=== PATIENT | male | born 2000 | race Caucasian/White ===

== ENCOUNTER 2020-09-15 18:14 | Emergency (ER) | payer BC, SELFPAY ==
[2020-09-15 18:20] VITALS: BP 127/77; PULSE 76; RESP 18; TEMP 36.7; O2SAT 98
--- NOTE | 2020-09-15 18:25 | ED.GENADULT ---
HPI - General Adult General Chief complaint: Neck Pain/Injury Stated complaint: lump Time Seen by Provider: 09/15/20 18:25 Source: patient and RN notes reviewed History of Present Illness HPI narrative: Patient is a 20-year-old male who presents the urgent care with complaints of a lump to the right neck. Patient states he originally did a Zoom call with his physician who told him to go to the emergency room. Patient states that he went to the ER 12 days ago and was placed on Keflex. Patient states that he did complete the prescription in the lump seems to have gotten larger since then. Patient states that the ER did not do blood work or test him for mono, strep or complete an ultrasound of the area. Patient denies of any fatigue, fever, nausea, vomiting, headaches. Patient denies of any history of autoimmune disorder. No other acute complaints. No acute distress noted. Patient aware of the plan of care. Some parts of this dictation were generated by voice recognition software and may contain typographical and/or grammatical inaccuracies. Related Data Allergies Allergy/AdvReac Type Severity Reaction Status Date / Time No Known Allergies Allergy Verified 09/15/20 18:19 Review of Systems Review of Systems: Narrative: CONSTITUTIONAL: Denies fever, chills, or sweats. EYES: Denies visual changes, redness, or discharge. ENT: Denies rhinorrhea, congestion, sore throat, or otalgia. Ports of a swollen lymph node in the neck CARDIOVASCULAR: Denies chest pain, palpitations, or edema. RESPIRATORY: Denies cough or dyspnea. GASTROINTESTINAL: Denies abdominal pain, nausea, vomiting, or diarrhea. GENITOURINARY: Denies dysuria or hematuria. SKIN: Denies rash or itching. MUSCULOSKELETAL: Denies back pain, joint pain, or myalgia. NEUROLOGIC: Denies headache, numbness, or weakness. All other systems reviewed are negative, except as documented in HPI. PMFSH Comments At the time of my signature, I reviewed and agree with the nursing past medical, surgical, social, and family history. There is no relevant family history pertinent to the patient complaint. Exam Narrative: Exam Narrative: GENERAL: This is a well-nourished, well-developed patient, in no apparent distress. HEAD: normocephalic, atraumatic. EYES: PERRL. Sclera clear/white. Vision is grossly intact. EARS: External ears normal, auditory canals clear and without drainage, TMs normal without perforation. Hearing grossly intact. NOSE: External nose normal with no obvious nasal discharge, nares without redness, no rhinorrhea. THROAT: Mucous membranes moist, mild erythema noted to posterior oropharynx with mild right tonsillar edema. NECK: Neck supple, non-tender right moderate (approximately 3-4cm firm, movable) cervical lymphadenopathy CARDIOVASCULAR: Regular rate and rhythm without murmurs, gallops, or rubs. RESPIRATORY: Clear to auscultation. Breath sounds equal bilaterally. No wheezes, rales, or rhonchi. SKIN: warm, intact with no suspicious lesions or rash, good texture and turgor. NEURO: awake, alert, and oriented to person, place and time. There were no obvious focal neurologic abnormalities. EXTREMITIES: No clubbing, cyanosis, or edema. Course Vital Signs Vital signs: Vital Signs Temperature 98.1 F 09/15/20 18:20 Pulse Rate 76 09/15/20 18:20 Respiratory Rate 18 09/15/20 18:20 Blood Pressure 127/77 09/15/20 18:20 Pulse Oximetry 98 09/15/20 18:20 Temperature 98.1 F 09/15/20 18:32 Pulse Rate 76 09/15/20 18:32 Respiratory Rate 18 09/15/20 18:32 Blood Pressure 127/77 09/15/20 18:32 Pulse Oximetry 98 09/15/20 18:32 Reviewed Medical Decision Making MDM Narrative Medical decision making narrative: Reviewed lab results with the patient. He is aware that mono spot was negative. The mono is not the most accurate test and therefore if symptoms persist may need to repeat with labs. However, you are positive for strep which could be causing the swolle
[2020-09-15 18:32] VITALS: BP 127/77; PULSE 76; RESP 18; TEMP 36.7; O2SAT 98
== END 2020-09-15 18:50 | disposition home or self-care (01) ==
PROVIDERS: Emergency Provider Nurse Practitioner Family; PCP Family Medicine
DX: J02.0 Streptococcal pharyngitis (principal)
CPT/HCPCS: 36416; 86308; 87880; 99203; G0463

== ENCOUNTER 2020-10-18 15:09 | Emergency (ER) | payer BC, SELFPAY ==
[2020-10-18 15:14] VITALS: BP 155/65; PULSE 76; RESP 20; TEMP 36.3; O2SAT 100
--- NOTE | 2020-10-18 15:18 | ED.EAR ---
HPI - Ear Problem General Chief complaint: Upper Respiratory Infection Stated complaint: Clogged Ear, Congestion Time Seen by Provider: 10/18/20 15:18 Source: patient and RN notes reviewed History of Present Illness HPI Narrative: Patient is a 20-year-old male who presents the urgent care with complaints of a right clogged ear and congestion. Patient states is been ongoing for approximately 3 months. Since then patient was treated for strep due to a lump in his throat and a positive strep swab. Patient states that it never improved the congestion or ear pain. Patient denies of any fevers, nausea, vomiting. Currently denies of a sore throat. Patient states his doctor told him to take Sudafed and follow-up in our facility if it continued longer than 7 days. Patient states he has been on the Sudafed for 7 days and it seems to have gotten worse. No other acute complaints. No acute distress noted. Patient aware of the plan of care. Some parts of this dictation were generated by voice recognition software and may contain typographical and/or grammatical inaccuracies. Related Data Allergies Allergy/AdvReac Type Severity Reaction Status Date / Time No Known Allergies Allergy Verified 10/18/20 15:17 Review of Systems Review of Systems: Narrative: CONSTITUTIONAL: Denies fever, chills, or sweats. EYES: Denies visual changes, redness, or discharge. ENT: Reports of sinus congestion and facial pressure with right otalgia CARDIOVASCULAR: Denies chest pain, palpitations, or edema. RESPIRATORY: Denies cough or dyspnea. GASTROINTESTINAL: Denies abdominal pain, nausea, vomiting, or diarrhea. GENITOURINARY: Denies dysuria or hematuria. SKIN: Denies rash or itching. MUSCULOSKELETAL: Denies back pain, joint pain, or myalgia. NEUROLOGIC: Denies headache, numbness, or weakness. All other systems reviewed are negative, except as documented in HPI. PMFSH Comments At the time of my signature, I reviewed and agree with the nursing past medical, surgical, social, and family history. There is no relevant family history pertinent to the patient complaint. Exam Narrative: Exam Narrative: GENERAL: This is a well-nourished, well-developed patient, in no apparent distress. HEAD: normocephalic, atraumatic. Frontal sinus tenderness EYES: PERRL. Sclera clear/white. Vision is grossly intact. EARS: External ears normal, auditory canals clear and without drainage, TMs normal without perforation. Hearing grossly intact. NOSE: External nose normal with no obvious nasal discharge, bilateral erythemic nares with clear rhinorrhea. Mild erythema to bilateral erythemic nares. Very noticeable nasal speech THROAT: Mucous membranes moist, posterior pharynx clear. Mild postnasal drainage NECK: Neck supple, non-tender without lymphadenopathy CARDIOVASCULAR: Regular rate and rhythm without murmurs, gallops, or rubs. RESPIRATORY: Clear to auscultation. Breath sounds equal bilaterally. No wheezes, rales, or rhonchi. SKIN: warm, intact with no suspicious lesions or rash, good texture and turgor. NEURO: awake, alert, and oriented to person, place and time. There were no obvious focal neurologic abnormalities. EXTREMITIES: No clubbing, cyanosis, or edema. Course Vital Signs Vital signs: Vital Signs Temperature 97.3 F L 10/18/20 15:14 Pulse Rate 76 10/18/20 15:14 Respiratory Rate 20 10/18/20 15:14 Blood Pressure 155/65 H 10/18/20 15:14 Pulse Oximetry 100 10/18/20 15:14 Temperature 97.3 F L 10/18/20 15:14 Pulse Rate 76 10/18/20 15:14 Respiratory Rate 20 10/18/20 15:14 Blood Pressure 155/65 H 10/18/20 15:14 Pulse Oximetry 100 10/18/20 15:14 Reviewed?patient is informed that they may have pre-hypertension or hypertension based on a blood pressure reading in the department. I recommend the patient call the primary care provider listed on their discharge instructions or a physician of their choice this week to arrange follow-up for further evalua
== END 2020-10-18 15:34 | disposition home or self-care (01) ==
PROVIDERS: Emergency Provider Nurse Practitioner Family; PCP Family Medicine
DX: R09.81 Nasal congestion (principal); H92.01 Otalgia, right ear
CPT/HCPCS: 99213; G0463

== ENCOUNTER 2023-06-06 11:43 | Emergency (ER) | payer BC, SELFPAY ==
[2023-06-06 11:49] VITALS: BP 146/81; PULSE 65; RESP 18; TEMP 36.1; O2SAT 99
--- NOTE | 2023-06-06 12:40 | ED.URI ---
HPI - URI/Sore Throat General Chief Complaint: Upper Respiratory Infection Stated Complaint: Sore Throat/Abdominal Pain/Ear Pain Time Seen by Provider: 06/06/23 12:30 Source: patient, RN notes reviewed and old records reviewed Mode of arrival: ambulatory Limitations: no limitations History of Present Illness HPI Narrative: 23-year-old male who presents to [facility] with complaints of sore throat,ear pain with left ear feeling clogged, nausea and abdominal crampy. Patient reports that he was seen at [facility] days ago and tested for Flu,COVID and RSV and also had a CT scan of abdomen with diagnosis of gastroenteritis. Patient reports that his stomach continues to feel upset with nausea,now his eyes bilaterally are red and they were crusted today and has some light sensitivity. Patient denies any vomiting or diarrhea but states he feels like he could vomit. MD elicited complaint: sore throat and other (ear pain, nausea,sore throat) Onset (ago): week(s) (1) Pain scale (0-10): 2 Able to tolerate fluids by mouth: Yes Treatments prior to arrival: other (DayQuil and Pepto Bismol) Related Data Allergies Allergy/AdvReac Type Severity Reaction Status Date / Time No Known Allergies Allergy Verified 06/06/23 11:44 Review of Systems Review of Systems: CONSTITUTIONAL: Denies fever, chills, or sweats. EYES: Denies visual changes,positive bilateral eye redness and discharge light sensitivity ENT: Reports rhinorrhea, congestion, positive for sore throat, and otalgia. CARDIOVASCULAR: Denies chest pain, palpitations, or edema. RESPIRATORY: Denies cough or dyspnea. GASTROINTESTINAL: Denies abdominal pain,positive for nausea, no recent vomiting, or diarrhea. GENITOURINARY: Denies dysuria or hematuria. SKIN: Denies rash or itching. MUSCULOSKELETAL: Denies back pain, joint pain, or myalgia. NEUROLOGIC: Denies headache, numbness, or weakness. PSYCHIATRIC: Denies anxiety or depression. All systems reviewed & are unremarkable except as noted in HPI and below PMFSH Past Medical History Medical History (Updated 06/07/23 @ 20:40 by Alina Padilla NP) Non-Hodgkin lymphoma remission Surgical History Surgical History (Updated 06/07/23 @ 20:33 by Alina Padilla NP) H/O adenoidectomy Social History Social History (Updated 06/07/23 @ 20:35 by Alina Padilla NP) Smoking status: Smoker, status unknown Alcohol intake: unknown Substance use: unknown Living arrangements: with family Gender identity (if verbalized by the patient): Male Comments At time of signature, agree with nursing past medical, surgical, social and family history. There is no relevant family history pertinent to the presenting complaint Exam Narrative: GENERAL: Well-appearing, well-nourished, and in no acute distress. HEAD: Normocephalic, atraumatic. EYES: PERRLA and EOMI.bilateral eye redness with crusting and drainage with photophobia ENT: Nares clear, clear rhinorrhea no epistaxis. Mucous membranes moist.Left TM red,Right TM normal with dull light reflex, Throat pink with no swelling NECK: Supple. No lymphadenopathy CHEST: Clear to auscultation. No respiratory distress.SAO2 99% on room air HEART: Regular rate and rhythm. No murmur heard. Normal peripheral pulses. ABDOMEN: Soft, nontender to palpation, nondistended, normal active bowel sounds. crampy sensation voiced intermittently with continued nausea. EXTREMITIES: Normal range of motion. No edema. SKIN: Warm, dry, no rash. NEURO: No focal deficits. Alert and oriented x3. Course Course Emergency Course: Patient is aware of diagnosis, understands and agrees to treatment plan.? Anticipatory guidance given.? Patient agrees to follow-up as directed and is aware of reasons to seek care at the emergency department. Portions of this record may have been created with voice recognition software Level of Care: Express Care Visit Vital Signs Vital signs: Vital Signs Temperature 36.1 C L 06/06/
== END 2023-06-06 13:06 | disposition home or self-care (01) ==
PROVIDERS: Emergency Provider Registered Nurse
DX: H10.9 Unspecified conjunctivitis (principal); H66.92 Otitis media, unspecified, left ear; K52.9 Noninfective gastroenteritis and colitis, unspecified; Z85.72 Personal history of non-Hodgkin lymphomas
CPT/HCPCS: 99213; G0463